=== PATIENT | female | born 1980 | race Caucasian/White ===

== ENCOUNTER 2017-02-11 08:09 | Emergency (ER) | payer MEDICAID ==
[~2017-02-11] VITALS: Ht 162.6 cm; Wt 102.0 kg
[2017-02-11] MEDS ORDERED: MORPHINE SULFATE 4 MG/ML CPJ (NOT FOR IM USE) IV ONE ×2 (09:30→12:30)
[2017-02-11] MEDS ORDERED: ONDANSETRON HCL 4MG/2ML VIAL IV ONE (09:30)
[2017-02-11 10:15] LABS: BASOPHILS % 0.4 % (0.0-2.0); EOSINOPHILS % 0.4 % (0.0-5.0); HEMATOCRIT. 39.1 % (36.0-48.0); HEMOGLOBIN. 13.4 g/dL (12.0-16.0); LYMPHOCYTES % 12.8 % (20.0-50.0); MEAN CORPUSCULAR HEMOGLOBIN 31.5 pg (28.0-32.0); MEAN CORPUSCULAR VOLUME 92.4 fL (81.0-99.0); MEAN PLATELET VOLUME 7.4 fl (7.4-10.4); MONOCYTES % 9.2 % (2.0-8.0); NEUTROPHILS % 77.2 % (40.0-76.0); PLATELET 227 x1000/uL (130-400); RED BLOOD CELL COUNT 4.23 mill/uL (4.2-5.4); RED CELL DISTRIBUTION WIDTH 13.6 % (11.6-14.6)
[2017-02-11 10:22] LABS: INR 1.1
[2017-02-11 10:26] LABS: CARBON DIOXIDE 26 mEq/L (21-32); CHLORIDE 104 mEq/L (98-107)
[2017-02-11 10:53] LABS: HCG SCREEN INDETERMINATE
[2017-02-11] MEDS ORDERED: DEXAMETHASONE 10 MG/ML VIAL IV ONE (13:30)
[2017-02-11] MEDS ORDERED: SODIUM CHLORIDE 0.9% 1000ML BAG (SEPSIS BOLUS) IV ONE (13:30)
[2017-02-11] MEDS ORDERED: VANCOMYCIN 1 G PREMIX 200 ML IV SCH (13:30)
[2017-02-11] MEDS ORDERED: KETOROLAC 30MG/ML VIAL IV ONE (13:30)
[2017-02-11] MEDS: CLINDAMYCIN 600 MG in DEXTROSE 5% WATER 50 ML IV ONE ×2 (14:24→16:21)
[2017-02-11] MEDS ORDERED: IOHEXOL-300 100 ML BOTTLE ONE (14:33)
[2017-02-11 16:00] VITALS: BP 107/68
== END 2017-02-11 16:25 | disposition short-term general hospital (02) ==
LOC: ER 08:27
DX: J36 Peritonsillar abscess (principal); R59.0 Localized enlarged lymph nodes
CPT/HCPCS: 36415; 70487; 70491; 71010; 80048; 83605; 84703; 85025; 85610; 87040; 96365; 96366; 96375; 96376; 99285; J1100; J1885; J2270; J2405; J3370; J3490; J7030; Q9967; Z7610; J7060

== ENCOUNTER 2017-09-11 11:46 | Emergency (ER) | payer MEDICAID ==
[~2017-09-11] VITALS: Ht 167.6 cm; Wt 107.0 kg
[2017-09-11 12:20] LABS: CLARITY URINE CLEAR (CLEAR); COLOR URINE YELLOW (YELLOW); KETONES URINE NEGATIVE (NEGATIVE); LEUKOCYTE ESTERASE URINE 1+ (NEGATIVE); NITRITE URINE NEGATIVE (NEGATIVE); OCCULT BLOOD URINE NEGATIVE (NEGATIVE); PH URINE 7.5 (4.5-8.0); PROTEIN URINE NEGATIVE (NEGATIVE); SPECIFIC GRAVITY URINE 1.006 (1.005-1.030); UROBILINOGEN URINE 0.2 E.U./dL (0.2-1.0)
[2017-09-11 12:50] LABS: BASOPHILS % 0.8 % (0.0-2.0); EOSINOPHILS % 1.9 % (0.0-5.0); HEMATOCRIT. 38.7 % (36.0-48.0); HEMOGLOBIN. 13.1 g/dL (12.0-16.0); MEAN CORPUSCULAR HEMOGLOBIN 30.5 pg (28.0-32.0); MEAN CORPUSCULAR VOLUME 89.9 fL (81.0-99.0); MONOCYTES % 8.2 % (2.0-8.0); NEUTROPHILS % 58.1 % (40.0-76.0); PLATELET 256 x1000/uL (130-400); RED CELL DISTRIBUTION WIDTH 13.8 % (11.6-14.6)
[2017-09-11 12:54] LABS: CHLORIDE 106 mEq/L (98-107)
[2017-09-11 13:15] LABS: PROTHROMBIN TIME 10.5 sec (9.4-11.6)
[2017-09-11] MEDS ORDERED: SODIUM CHLORIDE 0.9% 1,000 ML IV ONE (14:54)
[2017-09-11] MEDS ORDERED: KETOROLAC 30MG/ML VIAL IV STA (14:54)
[2017-09-11 18:51] VITALS: BP 123/60
== END 2017-09-11 19:24 | disposition home or self-care (01) ==
LOC: ER 15:47
DX: R10.31 Right lower quadrant pain (principal); N83.201 Unspecified ovarian cyst, right side; Z90.49 Acquired absence of other specified parts of digestive tract
CPT/HCPCS: 36415; 74176; 76830; 76856; 80053; 81003; 81025; 83690; 85025; 85610; 96361; 96374; 99285; J1885; J7030